=== PATIENT | male | born 1960 | race Caucasian/White ===

== ENCOUNTER → 2018-07-10 | Outpatient (CLI) | payer OTHER ==
[~2018-07-10] MED LIST: 0.9 % SODIUM CHLORIDE 10 ML DISP.SYRIN. ID ONE; GADOBUTROL 10 MMOL/10 ML VIAL INT ART ONE; IOHEXOL 300 MG/ML 50 ML VIAL. INT ART ONE; LIDOCAINE 1% Multi-Dose 20 ML VIAL. ID ONE; MELO7.5T29 PO; OXYC-328 PO
--- NOTE | 2018-07-10 15:05 | KCIC ---
Single view of the orbits without comparison for rule out foreign body, MRI clearance. FINDINGS: Dental amalgam is present. No other radiopaque foreign bodies are evident. Maxillary sinuses are clear. IMPRESSION: 1. No radiopaque orbital foreign bodies. Electronically signed by: Idris Lopez MD (07/10/2018 3:02 PM) [id number]
--- NOTE | 2018-07-10 16:38 | KCIC ---
MR arthrogram of the right shoulder Indication: Right shoulder pain after a fall in February. Technique: Intra-articular contrast injected into the glenohumeral joint and is reported separately. Routine 4 plane sequences were obtained, including ABER positioning. FINDINGS: Artifact: No significant image degradation. Acromioclavicular joint: Degenerative change with undersurface mass effect. Rotator cuff: * Supraspinatus-infraspinatus tendon: Complete full-thickness rupture. Severe retraction, medial to the superior glenoid, measuring about 6 cm. * Subscapularis tendon: Tendinosis with partial tear * Muscle bulk: Moderate atrophy with fatty infiltration and volume loss. Intramuscular edema within the infraspinatus and teres minor muscles. * Subacromial subdeltoid bursa: Contrast accumulation Articular cartilage: Mild primary osteoarthritis. Labrum: Mild blunting of the superior labrum. No labral detachment or separation. Biceps tendon: Intact Bones: No lesion or acute fracture. Soft tissue: No acute findings. Impression: 1. Complete full-thickness retracted rupture of supraspinatus and infraspinatus tendon with atrophy. Partial subscapularis tendon tear. 2. Blunting of the superior labrum compatible with degeneration or chronic tear. Electronically signed by: Davis Cordoba MD (07/10/2018 4:35 PM) [facility]
--- NOTE | 2018-07-10 16:46 | KCIC ---
PROCEDURE: Right shoulder injection using fluoroscopic guidance, prior to MR. HISTORY: Shoulder pain. TECHNIQUE: The procedure was explained to the patient as were potential risks, including among others infection, bleeding or allergic reaction. All questions were answered. Informed written and verbal consent was obtained. The shoulder was prepped and draped in the usual sterile manner. Following administration of local anesthetic, a 22-gauge needle was advanced into the anterior shoulder. Following negative aspiration, 12 cc of a solution of 5cc Omnipaque-300 contrast, 5 cc 1% lidocaine, 10 cc normal saline, and 0.1 cc gadolinium was injected without difficulty. The needle was removed. There was good hemostasis at the injection site. The patient left in stable condition without immediate complication. A single spot image is obtained. FLUOROSCOPY TIME:?42 seconds Electronically signed by: Davis Cordoba MD (07/10/2018 4:42 PM) [facility]
== END | disposition home or self-care (01) ==
LOC: KCIC 14:25
PROVIDERS: ATTEND Neuromusculoskeletal Medicine & OMM
DX: S46.011A Strain of muscle(s) and tendon(s) of the rotator cuff of right shoulder, initial encounter (principal); M19.011 Primary osteoarthritis, right shoulder; X58.XXXA Exposure to other specified factors, initial encounter; Y93.89 Activity, other specified; Y92.89 Other specified places as the place of occurrence of the external cause; Y99.8 Other external cause status
CPT/HCPCS: 23350; 70030; 73040; 73222; A9585; Q9967

== ENCOUNTER → 2018-07-27 | Outpatient (CLI) | payer OTHER ==
[~2018-07-27] MED LIST changes: -0.9 % SODIUM CHLORIDE 10 ML DISP.SYRIN. ID ONE; -GADOBUTROL 10 MMOL/10 ML VIAL INT ART ONE; -IOHEXOL 300 MG/ML 50 ML VIAL. INT ART ONE; -LIDOCAINE 1% Multi-Dose 20 ML VIAL. ID ONE
[2018-07-27 14:08] LABS: BILIRUBIN,URINE NEGATIVE (NEG); CLARITY,URINE CLEAR; COLOR,URINE YELLOW; NITRITE,URINE NEGATIVE (NEG); PROTEIN,URINE NEGATIVE (NEG-TRACE); UROBILINOGEN,URINE 0.2 mg/dL (0.2 mg/dL)
[2018-07-27 14:16] LABS: BACTERIA,URINE 0 /HPF (0-FEW); RBC,URINE 0 /HPF (0-2); SQUAMOUS EPITHELIAL CELL,UR OCC /LPF; WBC,URINE 0 /HPF (0-4)
[2018-07-27 14:22] LABS: BASO % 1 % (0-3); EOS # 0.2 x10^3/uL (0.0-0.7); EOS % 2 % (0-3); HEMOGLOBIN 14.7 g/dL (13.0-17.5); LYMPH # 1.9 x10^3/uL (1.0-4.8); LYMPH % 24 % (24-48); MEAN CORPUSCULAR HEMOGLOBIN 31 pg (25-35); MEAN CORPUSCULAR HGB CONC 35 g/dL (31-37); MEAN CORPUSCULAR VOLUME 90 fL (79-100); MONO # 0.8 x10^3/uL (0.0-1.1); MONO % 10 % (0-9); NEUT # 5.2 x10^3uL (1.8-7.7); NEUT % 64 % (31-73); PLATELET COUNT 210 x10^3/uL (140-400); RED BLOOD COUNT 4.69 x10^6/uL (4.30-5.70); RED CELL DISTRIBUTION WIDTH 13.1 % (11.5-14.5); WHITE BLOOD COUNT 8.1 x10^3/uL (4.0-11.0)
[2018-07-27 14:23] LABS: ALBUMIN 3.7 g/dL (3.4-5.0); CREATININE 1.1 mg/dL (0.7-1.3); GFR 68.5; POTASSIUM 3.9 mmol/L (3.5-5.1)
--- NOTE | 2018-07-27 14:23 | EKG ---
[facility] [address] [place] [address] Test Date: 2018-07-27 Test Time: 13:31:53 Pat Name: MELISSA GAVIRIA Department: Room: Gender: M Driller'S Assistant: JESUS : 1960 Requested By: RENU SANTILLAN Order Number: [id number] Reading MD: Kemal Ho MD Measurements Intervals [place] Rate: 63 P: 25 ID: [id number] QRS: -2 QRSD: 102 T: 14 QT: 396 QTc: 408 Interpretive Statements SINUS RHYTHM Electronically Signed On 07-30-2018 13:49:10 HEALTH UNDERWRITER by Kemal Ho MD
[2018-07-27 14:27] LABS: PROTHROMBIN TIME PATIENT 13.8 SEC (11.7-14.0)
--- NOTE | 2018-07-27 14:58 | RAD ---
PA and lateral chest. HISTORY: Preop shoulder surgery PA and lateral views were taken of the chest. There is linear scarring along the left heart border or atelectasis. There are no other infiltrates. There is no effusion. IMPRESSION: 1. Left base linear scarring or atelectasis without other infiltrates. Electronically signed by: Isaac Chadwick MD (07/27/2018 2:55 PM) [facility]
[2018-07-28 01:12] LABS: HEMOGLOBIN A1C 5.6 % (4.8-5.6)
== END | disposition home or self-care (01) ==
LOC: SURGPAT 13:32
PROVIDERS: ATTEND Orthopaedic Surgery
DX: Z01.818 Encounter for other preprocedural examination (principal); M19.011 Primary osteoarthritis, right shoulder
CPT/HCPCS: 36415; 71046; 80048; 81001; 82040; 83036; 85025; 85610; 85651; 85730; 87641; 93005